=== PATIENT | male | born 1995 | race Caucasian/White ===

== ENCOUNTER 2020-11-28 08:23 | Emergency (ER) | payer SELFPAY ==
[2020-11-28 08:34] VITALS: BP 112/74; PULSE 70; RESP 16; TEMP 36.8; O2SAT 100
--- NOTE | 2020-11-28 08:57 | ED.SKABFB ---
HPI - Skin/Abscess/Foreign Bdy General Chief complaint: Skin/Abscess/Foreign Body Stated complaint: poison alise Time Seen by Provider: 11/28/20 08:50 Source: patient and RN notes reviewed Mode of arrival: ambulatory Limitations: no limitations History of Present Illness HPI narrative: Patient presents today complaining of poison alise exposure treated 3 days ago that has left him with a rash to his bilateral arms, face, genitals, and a few spots to his chest. He has been applying hydrocortisone cream and calamine lotion without relief. Rash is the worst on his face and genitals. MD complaint: rash Related Data Home Medications Medication Instructions Recorded Confirmed insulin aspart U-100 [Novolog See Rx Instructions .ROUTE .COMPLEX 11/28/20 11/28/20 Flexpen U-100 Insulin] Allergies Allergy/AdvReac Type Severity Reaction Status Date / Time No Known Allergies Allergy Verified 11/28/20 08:46 Review of Systems Review of Systems: CONSTITUTIONAL: Denies body aches, fever, chills, or sweats. EYES: Denies visual changes, redness, or discharge. ENT: Denies rhinorrhea, congestion, sore throat, or otalgia. CARDIOVASCULAR: Denies chest pain, palpitations, or edema. RESPIRATORY: Denies cough or dyspnea. GASTROINTESTINAL: Denies abdominal pain, nausea, vomiting, or diarrhea. GENITOURINARY: Denies dysuria or hematuria. SKIN: Denies wounds.+ Pruritic rash MUSCULOSKELETAL: Denies back pain, joint pain, or myalgia. NEUROLOGIC: Denies headache, numbness, tingling, or weakness. PSYCH: Denies depression or anxiety. [facility] Past Medical History Medical History (Updated 11/28/20 @ 09:03 by Torie Casillas, [facility], ) Type I diabetes mellitus Comments At time of signature, I have reviewed and agree with nursing past medical, surgical, social and family history unless otherwise noted. Please see nursing chart for further information. There is no relevant family history pertinent to the presenting complaint Exam Narrative: GENERAL: Well-appearing, well-nourished, and in no acute distress. HEAD: Normocephalic. EYES: EOMI. No redness or drainage. Conjunctivae normal. ENT: Mucous membranes pink and moist. NECK: Normal AROM. CHEST: No respiratory distress. EXTREMITIES: Normal range of motion. No edema. SKIN: Warm, dry. Capillary refill normal. Normal skin turgor. Mildly edematous, erythematous with papular rash. Scattered mildly erythematous papular rash to the bilateral arms as well as a few spots to the chest. Genital exam was deferred. NEURO: No focal deficits. Alert and oriented x3. Gait steady. PSYCH: Normal affect. No signs of depression or anxiety. Course Vital Signs Vital signs: Vital Signs Temperature 98.2 F 11/28/20 08:34 Pulse Rate 70 11/28/20 08:34 Respiratory Rate 16 11/28/20 08:34 Blood Pressure 112/74 11/28/20 08:34 Pulse Oximetry 100 11/28/20 08:34 Temperature 98.2 F 11/28/20 08:34 Pulse Rate 70 11/28/20 08:34 Respiratory Rate 16 11/28/20 08:34 Blood Pressure 112/74 11/28/20 08:34 Pulse Oximetry 100 11/28/20 08:34 Reviewed MDM - Skin/Abscess/Foreign Bdy Differential Diagnosis Differential diagnosis: Likely viral exanthem, urticaria, insect bites and contact dermatitis Critical Care Time Critical Care Time Critical Care Time: No Discharge Plan Discharge Clinical Impression: Poison alise dermatitis Patient Disposition: Home, Self-Care Condition: Stable Instructions: Poison Alise (ED) Additional Instructions: Take the prednisone as prescribed until gone. Take Benadryl as needed for itching. As discussed, the steroids will raise your blood sugar. Adjust your insulin accordingly. Follow-up with your PCP with any concerns. Patient Language: Khmer Prescriptions: New prednisone 10 mg tablet See Rx Instructions .Route .COMPLEX Qty: 30 RF: 0 No Action insulin aspart U-100 [Novolog Flexpen U-100 Insulin] 100 unit/mL (3 mL) insu
== END 2020-11-28 09:05 | disposition home or self-care (01) ==
PROVIDERS: Emergency Provider Nurse Practitioner
DX: L23.7 Allergic contact dermatitis due to plants, except food (principal); E10.9 Type 1 diabetes mellitus without complications
CPT/HCPCS: 99213; G0463